=== PATIENT | female | born 1990 | race Caucasian/White ===

== ENCOUNTER → 2017-11-20 | Outpatient (REF) ==
[2017-11-20 09:13] LABS: LDL CHOLESTEROL 122 mg/dl
== END ==
DX: Z02.9 Encounter for administrative examinations, unspecified (principal)

== ENCOUNTER → 2018-11-10 | Outpatient (REF) ==
[2018-11-10 09:00] LABS: LDL CHOLESTEROL 94 mg/dl
== END ==
DX: Z02.9 Encounter for administrative examinations, unspecified (principal)

== ENCOUNTER 2018-12-18 08:52 | Emergency (ER) | payer OTHER ==
--- NOTE | 2018-12-18 08:53 | ER Report ---
History and Physical Time Seen By MD: 08:51 HPI/ROS CHIEF COMPLAINT: Right hand injury HISTORY OF PRESENT ILLNESS: Patient is a 28-year-old female who states that last evening she was playing softball. She states that she was in the outfield and went to catch a fairly hard hit ball. She accidentally used her dominant right hand and on gloved hand to catch the ball. She is complaining of pain to the palm of the hand along with swelling. She is having difficulty with range of motion and movement. Past Medical/Surgical History Noncontributory Constitutional Vital Sign - Last 24 Hours 12/18/18 08:56 Pulse 89 Resp 16 B/P (MAP) 127/92 Pulse Ox 94 O2 Delivery Room Air Physical Exam Examination of the Right/Left hand reveals ecchymosis specifically over the 2nd and 3rd metacarpal area along with some swelling. The patient is able to give a thumbs up sign, is able to make an okay sign, and is able to AB duct the fingers. Sensation is intact over the dorsal 1st web space, the volar aspect of the 2nd finger, and the volar aspect of the 5th finger. Capillary refill is brisk. Medical Decision Making EKG/Imaging Imaging 12/18/2018 9:18:13 am x-ray of the right hand reveals no obvious deformity or acute fracture. X-ray was interpreted by myself ED Course/Re-evaluation ED Course 12/18/2018 8:57:56 am plan at this time will be to x-ray the right hand. Decision to Disposition Date: Dec 18, 2018 Decision to Disposition Time: 09:18 Depart Departure Latest Vital Signs Vital Signs Date Time Temp Pulse Resp B/P (MAP) Pulse Ox O2 Delivery O2 Flow Rate FiO2 12/18/18 08:56 89 16 127/92 94 Room Air Impression: Primary Impression: Contusion, hand Condition: Condition Unchanged Disposition: HOME OR SELF-CARE Departure Forms: ER Transition Record, Medications Reconciliation, Off Work/School Form, School or Work Release?: Work Number of days to be released: 1 Patient Portal Information Patient Instructions: Contusion in Adults (ED) Additional Instructions: You may take Motrin or Tylenol as directed for pain. It is recommended that you ice the hand 3-4 times per day for the next 4-5 days. If you still have persistent pain after 7 days, you should follow-up with your primary care provider or to make an appointment at [facility] to follow-up with one of the orthopedic doctors. Problem Qualifiers Primary Impression: Contusion, hand Encounter type: initial encounter Laterality: right Qualified Codes: S60.221A - Contusion of right hand, initial encounter ULISES QUINTERO MD Dec 18, 2018 08:53
[2018-12-18 08:56] VITALS: BP 127/92
--- NOTE | 2018-12-18 09:41 | RADIOLOGY IMAGING REPORT ---
FACILITY: [facility] [place] PATIENT NAME: Govind Aranda : 1990 MR: [id number] V: [id number] EXAM DATE: ORDERING PHYSICIAN: ULISES QUINTERO TECHNOLOGIST: Location: [facility] [place] Patient: Govind Aranda : 1990 Visit/Account:[id number] Date of Sevice: 12/18/2018 Exam type: HAND COMPLETE RIGHT History: Trauma Comparison: None. Findings: There is a slightly comminuted fractures through the distal aspect of the right fifth metacarpal with slight volar angulation of the fracture site IMPRESSION: 1. Slightly comminuted fracture through the distal aspect the right fifth metacarpal with slight vol ar angulation at the fracture site Report Dictated By: Christi Grubbs MD at 12/18/2018 9:32 AM Report E-Signed By: Christi Grubbs MD at 12/18/2018 9:34 AM WSN:ALEXIS
== END 2018-12-18 09:39 | disposition home or self-care (01) ==
LOC: ER 09:02
DX: S60.221A Contusion of right hand, initial encounter (principal)
CPT/HCPCS: 99283

== ENCOUNTER 2019-01-08 09:04 | Outpatient (RCR) | payer OTHER ==
--- NOTE | 2019-01-08 15:58 | OT INITIAL EVALUATION ---
SUBJECTIVE: Patient is a 28 year old right hand dominate female referred to OP OT services for right small finger fracture at the distal end. Injury occurred while playing softball. Right hand was struck by softball resulting in fracture. Patient was seen by ortho two weeks ago with order to start AROM in 2 weeks, no PROM until cleared by MD in 5 weeks. Patient has been placed into a splint with the ring and small fingers placed into 90 degree position. Previous Medical History: please refer to chart Occupation: N/A OBJECTIVE: ROM: AROM Right ring MCP extension 0* ring PIP extension 0* ring DIP extension 0* ring MCP flexion 60* ring PIP flexion 95* ring DIP flexion 60* small MCP extension 0* small PIP extension 0* small DIP extension 0* small MCP flexion 68* small PIP flexion 85* small DIP flexion 58* Strength: not assessed Sensation: reports of no changes in sensation ASSESSMENT Patient presents with decreased AROM of the right hand ring and small fingers. Patient was instructed to complete gentle AROM exercises for the MCP, PIP and DIP flexion and extension to increase range of motion. Patient did not have any pain or discomfort with the AROM exercises. Patient to benefit from OT services for right hand AROM. Short Term Goals 1. Patient will increase AROM of the right small finger PIP and DIP joints for extension to WFL in order to complete self cares when cleared by ortho. 2. Patient will increase AROM of the right ring finger PIP and DIP joints for extension to WFL in order to complete self cares when cleared by otho. 3. Patient will be independent with her home exercise program per protocol. PLAN: Plan to see patient 1 time a week for 3 weeks to increase AROM of the right ring and small fingers Plan of care to include ther ex per protocol Thank you for this referral. If you have any questions, concerns, or comments about this report or plan, please contact me at [phone]. Shelia Morse MS, OTR/L Occupational Therapist [employer]
--- NOTE | 2019-01-29 16:30 | OT DISCHARGE SUMMARY ---
SUBJECTIVE: Patient is a 28 year old right hand dominate female referred to OP OT services for right small finger fracture at the distal end. Injury occurred while playing softball. Right hand was struck by softball resulting in fracture. Patient has been seen by her ortho and has been released. Previous Medical History: please refer to chart Occupation: N/A OBJECTIVE: ROM: AROM Right ring MCP extension 0* ring PIP extension 0* ring DIP extension 0* ring MCP flexion WNL ring PIP flexion WNL ring DIP flexion 60* small MCP extension 0* small PIP extension 0* small DIP extension 0* small MCP flexion WNL small PIP flexion WNL small DIP flexion WNL Strength: not assessed Sensation: reports of no changes in sensation ASSESSMENT Patient has ROM WNL and does not need to return back to OP OT services at this time. Short Term Goals 1. Patient will increase AROM of the right small finger PIP and DIP joints for extension to WFL in order to complete self cares when cleared by ortho. met 2. Patient will increase AROM of the right ring finger PIP and DIP joints for extension to WFL in order to complete self cares when cleared by ortho. met 3. Patient will be independent with her home exercise program per protocol.met PLAN: Plan to discharge patient from OT services with goals met. Thank you for this referral. If you have any questions, concerns, or comments about this report or plan, please contact me at [phone]. Shelia Morse MS, OTR/L Occupational Therapist [employer]
== END 2019-01-08 18:00 | disposition home or self-care (01) ==
LOC: OT 09:04
PROVIDERS: ATTEND Orthopaedic Surgery Hand Surgery
DX: S62.329D Displaced fracture of shaft of unspecified metacarpal bone, subsequent encounter for fracture with routine healing (principal)
CPT/HCPCS: 97165